=== PATIENT | female | born 1945 | race Caucasian/White ===

== ENCOUNTER 2016-09-26 10:23 | Inpatient (IN) | payer OTHER, MEDICARE ==
[~2016-09-26] VITALS: Ht 165.1 cm; Wt 54.9 kg
[2016-09-26] MEDS ORDERED: NORVASC10 MG PO (16:25)
[2016-09-26] MEDS ORDERED: TYLENOL EXTRA500 MG PO (16:27)
[2016-09-26] MEDS ORDERED: COLACE100 MG PO (16:28)
[2016-09-26] MEDS ORDERED: LIPITOR40 MG PO (16:28)
[2016-09-26] MEDS ORDERED: CYMBALTA60 MG PO (16:29)
[2016-09-26] MEDS ORDERED: ADVAIR 250/501 DISK IH (16:31)
[2016-09-26] MEDS ORDERED: FOLIC ACID1 MG PO (16:32)
[2016-09-26] MEDS ORDERED: LASIX40 MG PO (16:33)
[2016-09-26] MEDS ORDERED: NOVOLOG PE100 UNITS/ SC ×2 (16:36→16:41)
[2016-09-26] MEDS ORDERED: LANTUS 10100 UNITS/ SC (16:42)
[2016-09-26] MEDS ORDERED: VIMPAT100 MG PO (16:43)
[2016-09-26] MEDS ORDERED: SYNTHROID125 MCG PO (16:45)
[2016-09-26] MEDS ORDERED: LIDOCAINE700 MG TD (16:46)
[2016-09-26] MEDS ORDERED: [UNRECOGNIZED DRUG - OTHER] TP (16:48)
[2016-09-26] MEDS ORDERED: BACTROBAN CREAM15 GM TP (16:49)
[2016-09-26] MEDS ORDERED: ZYPREXA10 MG PO (16:51)
[2016-09-26] MEDS ORDERED: PROTONIX40 MG PO (16:52)
[2016-09-26] MEDS ORDERED: LYRICA25 MG PO (16:53)
[2016-09-26] MEDS ORDERED: SENNA8.8 MG/5 M PO (16:55)
[2016-09-26] MEDS ORDERED: OCEAN NASAL 0.645 ML BOTH NARES (16:56)
[2016-09-26] MEDS ORDERED: THIAMINE HCL100 MG PO (16:58)
[2016-09-26] MEDS ORDERED: SPIRIVA RESPIMAT4 GM IH (17:00)
[2016-09-26] MEDS ORDERED: SPIRIVA1 INHALATI IH (17:01)
[2016-09-26] MEDS ORDERED: COUMADIN6 MG PO (17:03)
[2016-09-26 17:05] LABS: POINT-OF-CARE METER ID UU13113720
[2016-09-26] MEDS ORDERED: COUMADIN7.5 MG PO (17:08)
[2016-09-26 17:43] VITALS: BP 153/65
[2016-09-26 17:48] LABS: INTER. NORMALIZED RATIO 1.6; PROTHROMBIN TIME 16.1 (9.2-11.2); PTT 55.7 (25-32)
[2016-09-26 20:42] LABS: MCH 27.8 PG (29.0-34.0); MCHC 31.4 G/DL (30.0-36.0); MCV 88.7 FL (83-99); PLATELET COUNT 256 K/uL (156-360); RBC DIS.WIDTH-CV 19.3 % (11.8-14.6); RED BLOOD COUNT 3.27 M/uL (3.80-5.20); WHITE BLOOD COUNT 9.6 K/uL (4.1-10.2)
[2016-09-26 20:50] LABS: CHLORIDE 101 mEq/L (99-109); POTASSIUM 4.9 mEq/L (3.7-5.4); SODIUM 136 mEq/L (136-147)
[2016-09-26 20:53] LABS: GLUCOSE 283 mg/dL (70-99)
[2016-09-26 20:54] LABS: ANION GAP 8 MEQ/L (2-14); TOTAL BILIRUBIN 0.3 mg/dL (0.0-1.0)
[2016-09-26 20:56] LABS: ALKALINE PHOSPHATASE 80 IU/L (3-129); GFR ESTIMATE (CALCULATED) 39 mL/min/
[2016-09-26 20:57] LABS: UREA NITROGEN (BUN) 22 mg/dL (9-23)
[2016-09-26 21:31] LABS: POINT-OF-CARE METER ID UU14174215
[2016-09-27 04:18] LABS: INTER. NORMALIZED RATIO 1.6; PROTHROMBIN TIME 16.4 (9.2-11.2)
[2016-09-27 05:01] VITALS: BP 121/56
[2016-09-27 08:00] LABS: POINT-OF-CARE METER ID UU13113720; POINT-OF-CARE USER ID AHSSSJB31
[2016-09-27 12:07] LABS: POINT-OF-CARE METER ID UU13113720; POINT-OF-CARE USER ID AHSSSJB31
[2016-09-27 15:53] VITALS: BP 130/61
[2016-09-27 16:45] LABS: POINT-OF-CARE METER ID UU14174215
[2016-09-27 21:22] LABS: POINT-OF-CARE METER ID UU13113720
[2016-09-28 04:52] VITALS: BP 133/62
[2016-09-28 05:30] LABS: INTER. NORMALIZED RATIO 1.6; PROTHROMBIN TIME 16.8 (9.2-11.2); PTT 70.6 (25-32)
[2016-09-28 06:02] LABS: HEMATOCRIT 26.6 % (36.0-46.0); MCHC 31.2 G/DL (30.0-36.0); MCV 89.9 FL (83-99); MEAN PLAT.VOLUME 9.4 uM^3 (9.5-12.4); PLATELET COUNT 251 K/uL (156-360); RBC DIS.WIDTH-CV 19.5 % (11.8-14.6); RBC DIS.WIDTH-SD 64.3 % (39-53); RED BLOOD COUNT 2.96 M/uL (3.80-5.20); WHITE BLOOD COUNT 9.7 K/uL (4.1-10.2)
[2016-09-28 07:10] LABS: POINT-OF-CARE METER ID UU14174215; POINT-OF-CARE USER ID AHSSSJB31
[2016-09-28 12:14] LABS: POINT-OF-CARE METER ID UU14174215; POINT-OF-CARE USER ID AHSSSJB31
[2016-09-28 15:57] VITALS: BP 143/73
[2016-09-28 16:30] LABS: POINT-OF-CARE METER ID UU13113720
[2016-09-28 21:07] LABS: POINT-OF-CARE METER ID UU13113720
[2016-09-29 01:27] LABS: INTER. NORMALIZED RATIO 1.5; PROTHROMBIN TIME 15.3 (9.2-11.2)
[2016-09-29 05:44] VITALS: BP 116/56
[2016-09-29 06:57] LABS: POINT-OF-CARE METER ID UU13113720; POINT-OF-CARE USER ID ENVGAF
[2016-09-29 11:37] LABS: POINT-OF-CARE METER ID UU13113720; POINT-OF-CARE USER ID ENVGAF
[2016-09-29 16:50] VITALS: BP 168/67
[2016-09-29 16:59] LABS: POINT-OF-CARE METER ID UU13113720
[2016-09-29 21:34] LABS: POINT-OF-CARE METER ID UU14174215
[2016-09-30 05:46] VITALS: BP 117/57
[2016-09-30 07:36] LABS: POINT-OF-CARE METER ID UU13113720; POINT-OF-CARE USER ID ENVGAF
[2016-09-30 08:01] LABS: HEMATOCRIT 26.5 % (36.0-46.0); MCHC 30.9 G/DL (30.0-36.0); MCV 90.4 FL (83-99); MEAN PLAT.VOLUME 9.4 uM^3 (9.5-12.4); PLATELET COUNT 294 K/uL (156-360); RBC DIS.WIDTH-CV 19.9 % (11.8-14.6); RBC DIS.WIDTH-SD 65.6 % (39-53); RED BLOOD COUNT 2.93 M/uL (3.80-5.20); WHITE BLOOD COUNT 9.7 K/uL (4.1-10.2)
[2016-09-30 08:07] LABS: INTER. NORMALIZED RATIO 1.5; PROTHROMBIN TIME 15.4 (9.2-11.2)
[2016-09-30 12:02] LABS: POINT-OF-CARE METER ID UU13113720; POINT-OF-CARE USER ID AHSSSJB31
[2016-09-30 15:35] VITALS: BP 130/60
[2016-09-30 17:12] LABS: POINT-OF-CARE METER ID UU13113720
[2016-09-30 21:21] LABS: POINT-OF-CARE METER ID UU13113720
[2016-10-01 04:45] VITALS: BP 155/70
[2016-10-01 07:30] LABS: POINT-OF-CARE METER ID UU13113720
[2016-10-01 09:25] LABS: INTER. NORMALIZED RATIO 1.8
[2016-10-01 11:57] LABS: POINT-OF-CARE METER ID UU14174215
[2016-10-01 15:05] VITALS: BP 145/66
[2016-10-01 16:18] LABS: POINT-OF-CARE METER ID UU14174215
[2016-10-01 20:39] LABS: POINT-OF-CARE METER ID UU14174215
[2016-10-02 06:10] VITALS: BP 137/65
[2016-10-02 06:22] LABS: INTER. NORMALIZED RATIO 2.3; PROTHROMBIN TIME 23.6 (9.2-11.2); PTT 80.1 (25-32)
[2016-10-02 07:24] LABS: POINT-OF-CARE METER ID UU14174215
[2016-10-02 11:51] LABS: POINT-OF-CARE METER ID UU14174215
[2016-10-02 15:32] VITALS: BP 131/64
[2016-10-02 16:24] LABS: POINT-OF-CARE METER ID UU14174215
[2016-10-02 21:14] LABS: POINT-OF-CARE METER ID UU14174215
[2016-10-02 21:35] VITALS: BP 160/81
[2016-10-02 22:16] LABS: BASE EXCESS 3.2 mEq/L (-3 to +3); BICARBONATE 28.5 mEq/L (22-26); COMMENTS - BLOOD GASES C+; DEVICE NCH; METHEMOGLOBIN 1.8 % (0-1.5); O2 FLOW 3 L/MIN; PCO2 46 mm Hg (35-45); PO2 56 mm Hg (80-100); SITE LR
[2016-10-02 22:32] LABS: HEMATOCRIT 27.7 % (36.0-46.0); MCH 27.9 PG (29.0-34.0); MCHC 31.4 G/DL (30.0-36.0); MCV 88.8 FL (83-99); NRBC (%) 0.2 /100 WBC (0-0); PLATELET COUNT 303 K/uL (156-360); RBC DIS.WIDTH-CV 19.8 % (11.8-14.6); RBC DIS.WIDTH-SD 63.9 % (39-53); RED BLOOD COUNT 3.12 M/uL (3.80-5.20); WHITE BLOOD COUNT 12.5 K/uL (4.1-10.2)
[2016-10-02 22:42] LABS: CHLORIDE 102 mEq/L (99-109); SODIUM 137 mEq/L (136-147)
[2016-10-02 22:44] LABS: GLUCOSE 353 mg/dL (70-99)
[2016-10-02 22:45] LABS: ANION GAP 11 MEQ/L (2-14)
[2016-10-02 22:46] LABS: TOTAL BILIRUBIN 0.3 mg/dL (0.0-1.0)
[2016-10-02 22:47] LABS: ALKALINE PHOSPHATASE 81 IU/L (3-129)
[2016-10-02 22:48] LABS: GFR ESTIMATE (CALCULATED) 43 mL/min/
[2016-10-02 22:49] LABS: UREA NITROGEN (BUN) 21 mg/dL (9-23)
== END 2016-10-02 22:42 | DRG 56 ==
LOC: 3WEST 10:23
PROVIDERS: Internal Medicine; Physical Medicine & Rehabilitation Pain Medicine; Psychiatry & Neurology Neurology
PROC: 5A09357 Assistance with Respiratory Ventilation, Less than 24 Consecutive Hours, Continuous Positive Airway Pressure (ICD-10-PCS; principal; 2016-09-26)
DX: I69.019 Unspecified symptoms and signs involving cognitive functions following nontraumatic subarachnoid hemorrhage (principal); R26.2 Difficulty in walking, not elsewhere classified; I13.0 Hypertensive heart and chronic kidney disease with heart failure and stage 1 through stage 4 chronic kidney disease, or unspecified chronic kidney disease; J96.01 Acute respiratory failure with hypoxia; A41.9 Sepsis, unspecified organism; J18.9 Pneumonia, unspecified organism; Y95 Nosocomial condition; G93.40 Encephalopathy, unspecified; N18.3 Chronic kidney disease, stage 3 (moderate); I50.9 Heart failure, unspecified; E11.22 Type 2 diabetes mellitus with diabetic chronic kidney disease; I27.2 Other secondary pulmonary hypertension; D32.0 Benign neoplasm of cerebral meninges; D86.9 Sarcoidosis, unspecified; D64.9 Anemia, unspecified; G89.29 Other chronic pain; M54.9 Dorsalgia, unspecified; R53.1 Weakness; I48.2 Chronic atrial fibrillation; J43.9 Emphysema, unspecified; G47.30 Sleep apnea, unspecified; I48.0 Paroxysmal atrial fibrillation; E03.9 Hypothyroidism, unspecified; Z95.2 Presence of prosthetic heart valve; Z79.01 Long term (current) use of anticoagulants; Z79.4 Long term (current) use of insulin; Z95.0 Presence of cardiac pacemaker; Z86.718 Personal history of other venous thrombosis and embolism; Z87.891 Personal history of nicotine dependence
CPT/HCPCS: 36600; 70450; 71020; 71250; 80053; 82803; 82948; 83605; 85027; 85610; 85730; 87040; 92523 GN; 92610 GN; 93005; 94640; 94640 76; 94660; 94799; 97110 GO; 97530 GP; 97532 GN; 99202

== ENCOUNTER 2016-10-02 22:24 | Inpatient (IN) | payer OTHER, MEDICARE ==
[~2016-10-02] VITALS: Ht 157.5 cm; Wt 57.5 kg
[~2016-10-02 22:24] MED LIST: ADVAIR 250/501 DISK IH; BACTROBAN CREAM15 GM TP; COLACE100 MG PO; COUMADIN6 MG PO; COUMADIN7.5 MG PO; CYMBALTA60 MG PO; FOLIC ACID1 MG PO; LANTUS 10100 UNITS/ SC; LASIX40 MG PO; LIDOCAINE700 MG TD; LIPITOR40 MG PO; LYRICA25 MG PO; NORVASC10 MG PO; NOVOLOG PE100 UNITS/ SC; OCEAN NASAL 0.645 ML BOTH NARES; PROTONIX40 MG PO; SENNA8.8 MG/5 M PO; SPIRIVA RESPIMAT4 GM IH; SPIRIVA1 INHALATI IH; SYNTHROID125 MCG PO; THIAMINE HCL100 MG PO; TYLENOL EXTRA500 MG PO; VIMPAT100 MG PO; ZYPREXA10 MG PO; [UNRECOGNIZED DRUG - OTHER] TP
[2016-10-02 22:45] VITALS: BP 151/67
[2016-10-02 23:00] VITALS: BP 158/59
[2016-10-03] VITALS (9 sets, daily range): BP systolic 107–168; BP diastolic 37–146
[2016-10-03 01:37] LABS: METH RESISTANT S AUREUS PCR NEGATIVE (NEGATIVE)
[2016-10-03 01:41] LABS: PROBE CHECK PASS; SPECIMEN PROCESSING CONTROL PASS
[2016-10-03 04:59] LABS: HEMATOCRIT 28.4 % (36.0-46.0); MCH 27.8 PG (29.0-34.0); MCV 89.6 FL (83-99); NRBC (%) 0.3 /100 WBC (0-0); PLATELET COUNT 269 K/uL (156-360); RBC DIS.WIDTH-CV 19.9 % (11.8-14.6); RBC DIS.WIDTH-SD 65.1 % (39-53); RED BLOOD COUNT 3.17 M/uL (3.80-5.20); WHITE BLOOD COUNT 19.8 K/uL (4.1-10.2)
[2016-10-03 05:13] LABS: CHLORIDE 105 mEq/L (99-109); POTASSIUM 5.3 mEq/L (3.7-5.4); SODIUM 137 mEq/L (136-147)
[2016-10-03 05:15] LABS: GLUCOSE 234 mg/dL (70-99)
[2016-10-03 05:16] LABS: ANION GAP 9 MEQ/L (2-14)
[2016-10-03 05:19] LABS: ALKALINE PHOSPHATASE 75 IU/L (3-129); GFR ESTIMATE (CALCULATED) 47 mL/min/
[2016-10-03 05:20] LABS: UREA NITROGEN (BUN) 21 mg/dL (9-23)
[2016-10-03 05:29] LABS: TOTAL BILIRUBIN 0.4 mg/dL (0.0-1.0)
[2016-10-03 05:51] LABS: ABS NEUTROPHIL COUNT 18.9; ANISOCYTOSIS 2+; BAND NEUTROPHILS 6.4 % (0-8.0); EOSINOPHIL ABS CT 0; HYPOCHROMASIA 1+; INSTRUMENT ABS NEUTROPHIL CT 17.6 K/uL; LYMPHOCYTES 1.8 % (15.0-45.0); MACROCYTES 1+; METAMYELOCYTES 2.7 %; PLAT.SUFFICIENCY ADEQUATE; POIKILOCYTOSIS 1+; POLYCHROMASIA 1+; SEG.NEUTROPHILS 89.1 % (46.0-76.0); STOMATOCYTES 1+
[2016-10-03 08:12] LABS: INFLUENZA A VIRAL ANTIGEN NEGATIVE; INFLUENZA B VIRAL ANTIGEN NEGATIVE
[2016-10-03 10:20] LABS: INTER. NORMALIZED RATIO 2.9; PROTHROMBIN TIME 30.5 (9.2-11.2)
[2016-10-03 12:17] LABS: POINT-OF-CARE METER ID UU14162636
[2016-10-03 17:39] LABS: POINT-OF-CARE METER ID UU13113731
[2016-10-03 20:46] LABS: POINT-OF-CARE USER ID ENVMNS
[2016-10-04 00:15] VITALS: BP 128/62
[2016-10-04 04:28] VITALS: BP 137/72
[2016-10-04 07:17] LABS: INTERNAL CONTROL VALID? YES
[2016-10-04 07:25] VITALS: BP 128/59
[2016-10-04 07:43] LABS: HEMATOCRIT 25.1 % (36.0-46.0); MCH 28.6 PG (29.0-34.0); MCHC 31.1 G/DL (30.0-36.0); MCV 91.9 FL (83-99); MEAN PLAT.VOLUME 9.2 uM^3 (9.5-12.4); PLATELET COUNT 249 K/uL (156-360); RBC DIS.WIDTH-CV 20.1 % (11.8-14.6); RBC DIS.WIDTH-SD 68.1 % (39-53); RED BLOOD COUNT 2.73 M/uL (3.80-5.20)
[2016-10-04 07:54] LABS: WHITE BLOOD COUNT 11.8 K/uL (4.1-10.2)
[2016-10-04 07:55] LABS: INTER. NORMALIZED RATIO 2.8; PROTHROMBIN TIME 29.1 (9.2-11.2)
[2016-10-04 08:20] LABS: ANION GAP 8 MEQ/L (2-14); CHLORIDE 103 MEQ/L (99-109); GFR ESTIMATE (CALCULATED) 47 mL/min/; GLUCOSE 180 mg/dL (70-99); POTASSIUM 4.8 MEQ/L (3.7-5.4); SAMPLE HEMOLYSIS CHECK 0; SAMPLE ICTERIC CHECK 0; SAMPLE LIPEMIA CHECK 0; SODIUM 136 MEQ/L (136-147); UREA NITROGEN (BUN) 26 mg/dL (9-23)
[2016-10-04 11:11] LABS: POINT-OF-CARE METER ID UU13113781
[2016-10-04 11:22] VITALS: BP 143/62
[2016-10-04 16:33] VITALS: BP 130/62
[2016-10-04 16:47] LABS: POINT-OF-CARE METER ID UU13113781
[2016-10-04 19:00] VITALS: BP 131/58
[2016-10-05] VITALS (7 sets, daily range): BP systolic 116–153; BP diastolic 61–92
[2016-10-05 03:20] LABS: POINT-OF-CARE METER ID UU14174216
[2016-10-05 05:29] LABS: INTER. NORMALIZED RATIO 2.4; PROTHROMBIN TIME 25.4 (9.2-11.2)
[2016-10-05 05:30] LABS: EOSINOPHIL (%) 4.5 % (0-5); EOSINOPHIL COUNT 0.3 K/uL (0-0.3); HEMATOCRIT 24.8 % (36.0-46.0); IMMATURE GRANULOCYTE COUNT 0.1 K/uL; INSTRUMENT ABS NEUTROPHIL CT 4.5 K/uL; LYMPHOCYTE COUNT 0.9 K/uL (1.0-2.8); MCH 28.2 PG (29.0-34.0); MCV 90.8 FL (83-99); MEAN PLAT.VOLUME 9.2 uM^3 (9.5-12.4); MONOCYTE (%) 7.8 % (3-12); MONOCYTE COUNT 0.5 K/uL (0-0.8); NEUTROPHIL (%) 71.6 % (45-76); NEUTROPHIL COUNT 4.5 K/uL (1.8-6.4); PLATELET COUNT 237 K/uL (156-360); RBC DIS.WIDTH-CV 19.5 % (11.8-14.6); RBC DIS.WIDTH-SD 65.1 % (39-53); RED BLOOD COUNT 2.73 M/uL (3.80-5.20)
[2016-10-05 05:31] LABS: WHITE BLOOD COUNT 6.3 K/uL (4.1-10.2)
[2016-10-05 05:46] LABS: ANION GAP 8 MEQ/L (2-14); CHLORIDE 105 MEQ/L (99-109); GFR ESTIMATE (CALCULATED) 52 mL/min/; GLUCOSE 154 mg/dL (70-99); MAGNESIUM 1.7 mg/dl (1.3-2.7); POTASSIUM 4.5 MEQ/L (3.7-5.4); SAMPLE HEMOLYSIS CHECK 0; SAMPLE ICTERIC CHECK 0; SAMPLE LIPEMIA CHECK 0; SODIUM 139 MEQ/L (136-147); UREA NITROGEN (BUN) 25 mg/dL (9-23)
[2016-10-05 07:43] LABS: POINT-OF-CARE USER ID NUTSLF44
[2016-10-05 11:31] LABS: POINT-OF-CARE USER ID NUTSLF44
[2016-10-05 16:05] LABS: HEMATOCRIT 24.5 % (36.0-46.0); MCH 27.9 PG (29.0-34.0); MCV 90.1 FL (83-99); MEAN PLAT.VOLUME 8.9 uM^3 (9.5-12.4); PLATELET COUNT 237 K/uL (156-360); RBC DIS.WIDTH-CV 19.4 % (11.8-14.6); RBC DIS.WIDTH-SD 64.2 % (39-53); RED BLOOD COUNT 2.72 M/uL (3.80-5.20); WHITE BLOOD COUNT 6.9 K/uL (4.1-10.2)
[2016-10-05 17:19] LABS: POINT-OF-CARE USER ID NUTSLF44
[2016-10-06 04:57] VITALS: BP 154/70
[2016-10-06 05:48] LABS: MCH 28.9 PG (29.0-34.0); MCV 90.3 FL (83-99); MEAN PLAT.VOLUME 9.5 uM^3 (9.5-12.4); PLATELET COUNT 255 K/uL (156-360); RBC DIS.WIDTH-CV 19.3 % (11.8-14.6); RBC DIS.WIDTH-SD 65.1 % (39-53); RED BLOOD COUNT 2.77 M/uL (3.80-5.20); WHITE BLOOD COUNT 6.7 K/uL (4.1-10.2)
[2016-10-06 07:11] VITALS: BP 146/68
[2016-10-06 07:25] LABS: INTER. NORMALIZED RATIO 2.5; PROTHROMBIN TIME 25.9 (9.2-11.2)
[2016-10-06 11:21] VITALS: BP 148/65
[2016-10-06 11:32] LABS: POINT-OF-CARE METER ID UU13113781
[2016-10-06] MEDS ORDERED: CEFDINIR300 MG PO (12:32)
[2016-10-06] MEDS ORDERED: ACETAMINOPHEN-1 EAC1 PO (12:32)
[2016-10-06] MEDS ORDERED: MUCINEX600 MG PO (12:37)
[2016-10-06] MEDS ORDERED: LANTUS 10100 UNITS/ SC (14:23)
[2016-10-06] MEDS ORDERED: LEVEMIR100 UNIT/2 SC (14:25)
== END 2016-10-06 15:22 | disposition home health service (06) | DRG 189 ==
LOC: 4WEST 22:24 → 4EAST 22:51 → 4WEST 22:51 → 4EAST 10-03 17:40
PROVIDERS: Hospitalist; Internal Medicine
DX: J96.01 Acute respiratory failure with hypoxia (principal); J44.0 Chronic obstructive pulmonary disease with (acute) lower respiratory infection; J18.9 Pneumonia, unspecified organism; J44.1 Chronic obstructive pulmonary disease with (acute) exacerbation; R26.2 Difficulty in walking, not elsewhere classified; D86.9 Sarcoidosis, unspecified; Y95 Nosocomial condition; I13.0 Hypertensive heart and chronic kidney disease with heart failure and stage 1 through stage 4 chronic kidney disease, or unspecified chronic kidney disease; I50.9 Heart failure, unspecified; N18.3 Chronic kidney disease, stage 3 (moderate); E11.22 Type 2 diabetes mellitus with diabetic chronic kidney disease; I48.0 Paroxysmal atrial fibrillation; G47.30 Sleep apnea, unspecified; E03.9 Hypothyroidism, unspecified; D32.0 Benign neoplasm of cerebral meninges; D64.9 Anemia, unspecified; F32.9 Major depressive disorder, single episode, unspecified; Z86.718 Personal history of other venous thrombosis and embolism; Z95.0 Presence of cardiac pacemaker; Z95.2 Presence of prosthetic heart valve; Z79.01 Long term (current) use of anticoagulants
CPT/HCPCS: 71010; 71020; 80048; 80053; 82948; 83605; 83735; 85025; 85027; 85610; 87070; 87205; 87449; 87502; 87641; 94010; 94640; 94640 76; 94667; 94668; 94760; 94799; 97530 GO; 99202; J0692; J3370; J7050

== ENCOUNTER 2016-10-31 11:57 | Inpatient (IN) | payer OTHER, MEDICARE ==
[~2016-10-31] VITALS: Ht 167.6 cm; Wt 65.6 kg
[~2016-10-31 11:57] MED LIST changes: +ACETAMINOPHEN-1 EAC1 PO; +CEFDINIR300 MG PO; +LEVEMIR100 UNIT/2 SC; +MUCINEX600 MG PO
[2016-10-31 12:48] LABS: BASE EXCESS 11.6 mEq/L (-3 to +3); COMMENTS - BLOOD GASES A+C+; METHEMOGLOBIN 1.1 % (0-1.5); O2 FLOW 10 L/MIN; PCO2 60 mm Hg (35-45); PO2 171 mm Hg (80-100); SITE RR; pH 7.41 (7.35-7.45)
[2016-10-31 12:49] LABS: DEVICE NCHF; TOTAL RESP RATE 21 resp/min
[2016-10-31 13:54] LABS: EOSINOPHIL (%) 1.3 % (0-5); EOSINOPHIL COUNT 0.1 K/uL (0-0.3); HEMATOCRIT 27.2 % (36.0-46.0); IMMATURE GRANULOCYTE (%) 0.5 % (0.0-0.7); IMMATURE GRANULOCYTE COUNT 0.1 K/uL; MCH 26.5 PG (29.0-34.0); MCHC 31.3 G/DL (30.0-36.0); MCV 84.7 FL (83-99); MEAN PLAT.VOLUME 8.5 uM^3 (9.5-12.4); MONOCYTE (%) 10.3 % (3-12); MONOCYTE COUNT 1.1 K/uL (0-0.8); NEUTROPHIL (%) 77.8 % (45-76); NRBC (%) 0.2 /100 WBC (0-0); PLATELET COUNT 231 K/uL (156-360); RBC DIS.WIDTH-CV 16.8 % (11.8-14.6); RBC DIS.WIDTH-SD 52.6 % (39-53); RED BLOOD COUNT 3.21 M/uL (3.80-5.20); WHITE BLOOD COUNT 10.3 K/uL (4.1-10.2)
[2016-10-31 14:01] LABS: CHLORIDE 92 mEq/L (99-109); POTASSIUM 3.3 mEq/L (3.7-5.4); SODIUM 138 mEq/L (136-147)
[2016-10-31 14:02] LABS: GLUCOSE 90 mg/dL (70-99)
[2016-10-31 14:04] LABS: ANION GAP 13 MEQ/L (2-14)
[2016-10-31 14:05] LABS: INTER. NORMALIZED RATIO 2.4; PROTHROMBIN TIME 24.9 (9.2-11.2); PTT 50.4 (25-32)
[2016-10-31 14:06] LABS: GFR ESTIMATE (CALCULATED) 34 mL/min/
[2016-10-31 14:07] LABS: UREA NITROGEN (BUN) 50 mg/dL (9-23)
[2016-10-31 14:13] LABS: TROP-I INTERPRETATION NEGATIVE; TROPONIN-I 0.07 ng/mL (0.0-0.30)
[2016-10-31] MEDS ORDERED: DULERA 200 MCG/13 GM IH (15:12)
[2016-10-31] MEDS ORDERED: CYMBALTA30 MG PO (15:13)
[2016-10-31] MEDS ORDERED: LANTUS 3 M100 UNITS1 SC (15:14)
[2016-10-31] MEDS ORDERED: SPIRIVA1 INHALATI IH (15:16)
[2016-10-31] MEDS ORDERED: PROBIOTIC1 EAC1 PO (15:16)
[2016-10-31] MEDS ORDERED: NOVOLOG PE100 UNITS/ SC (15:16)
[2016-10-31] MEDS ORDERED: COUMADIN5 MG PO (15:18)
[2016-10-31] MEDS ORDERED: RANITIDINE HCL300 M1 PO (15:19)
[2016-10-31] MEDS ORDERED: WARFARIN SODIUM1 MG PO (15:19)
[2016-10-31] MEDS ORDERED: METOLAZONE2.5 MG PO (15:20)
[2016-10-31] MEDS ORDERED: RENA-VITE RX T1 EACH PO (15:20)
[2016-10-31 16:05] VITALS: BP 138/63
[2016-10-31 19:24] VITALS: BP 128/62
[2016-10-31 23:59] VITALS: BP 121/58
[2016-11-01 03:43] VITALS: BP 124/58
[2016-11-01 05:29] LABS: HEMATOCRIT 25.1 % (36.0-46.0); MCH 26.4 PG (29.0-34.0); MCHC 31.1 G/DL (30.0-36.0); MCV 85.1 FL (83-99); PLATELET COUNT 200 K/uL (156-360); RBC DIS.WIDTH-CV 16.7 % (11.8-14.6); RBC DIS.WIDTH-SD 52.6 % (39-53); RED BLOOD COUNT 2.95 M/uL (3.80-5.20); WHITE BLOOD COUNT 9.1 K/uL (4.1-10.2)
[2016-11-01 05:41] LABS: INTER. NORMALIZED RATIO 2.1; PROTHROMBIN TIME 22.4 (9.2-11.2)
[2016-11-01 05:52] LABS: ANION GAP 9 MEQ/L (2-14); CHLORIDE 94 MEQ/L (99-109); GFR ESTIMATE (CALCULATED) 31 mL/min/; POTASSIUM 3.8 MEQ/L (3.7-5.4); SAMPLE HEMOLYSIS CHECK 0; SAMPLE ICTERIC CHECK 0; SAMPLE LIPEMIA CHECK 0; SODIUM 136 MEQ/L (136-147); UREA NITROGEN (BUN) 55 mg/dL (9-23)
[2016-11-01 06:00] LABS: POINT-OF-CARE METER ID UU14174216
[2016-11-01 06:00] LABS: GLUCOSE 335 mg/dL (70-99)
[2016-11-01 07:16] VITALS: BP 127/61
[2016-11-01 07:51] LABS: EOSINOPHIL (%) 0 % (0-5); IMMATURE GRANULOCYTE (%) 0.8 % (0.0-0.7); IMMATURE GRANULOCYTE COUNT 0.1 K/uL; INSTRUMENT ABS NEUTROPHIL CT 8.5 K/uL; LYMPHOCYTE COUNT 0.4 K/uL (1.0-2.8); MONOCYTE (%) 1.9 % (3-12); MONOCYTE COUNT 0.2 K/uL (0-0.8); NEUTROPHIL (%) 93.5 % (45-76); NEUTROPHIL COUNT 8.5 K/uL (1.8-6.4)
[2016-11-01 08:15] LABS: INTERNAL CONTROL VALID? YES
[2016-11-01 08:19] LABS: POINT-OF-CARE METER ID UU13113781; POINT-OF-CARE USER ID ENVKC36
[2016-11-01 08:31] LABS: POINT-OF-CARE METER ID UU14174216
[2016-11-01 11:18] VITALS: BP 122/58
[2016-11-01 11:44] LABS: POINT-OF-CARE USER ID ENVKC36
[2016-11-01 16:09] VITALS: BP 126/61
[2016-11-01 16:52] LABS: Estimated Average Glucose 148 mg/dL (70-123); HEMOGLOBIN A1c (GLYCOHEMOGLOB) 6.8 % HGB (Below 5.7)
[2016-11-01 19:00] VITALS: BP 134/73
[2016-11-01 21:26] LABS: POINT-OF-CARE METER ID UU13113781
[2016-11-01 23:30] VITALS: BP 134/98
[2016-11-02 03:00] VITALS: BP 142/67
[2016-11-02 06:25] LABS: INTER. NORMALIZED RATIO 3.3
[2016-11-02 06:46] LABS: PROTHROMBIN TIME 34.7 (9.2-11.2)
[2016-11-02 08:05] LABS: POINT-OF-CARE METER ID UU14174216; POINT-OF-CARE USER ID NUTSLF44
[2016-11-02 08:30] VITALS: BP 129/71
[2016-11-02 11:52] VITALS: BP 142/64
[2016-11-02 12:06] LABS: POINT-OF-CARE USER ID NUTSLF44
[2016-11-02 12:08] VITALS: BP 155/69
[2016-11-02 15:22] VITALS: BP 151/66
[2016-11-02 15:22] LABS: HEMATOCRIT 26.2 % (36.0-46.0); MCH 26.2 PG (29.0-34.0); MCHC 30.5 G/DL (30.0-36.0); MCV 85.9 FL (83-99); MEAN PLAT.VOLUME 9.2 uM^3 (9.5-12.4); NRBC (%) 0.3 /100 WBC (0-0); PLATELET COUNT 272 K/uL (156-360); RBC DIS.WIDTH-CV 17.2 % (11.8-14.6); RBC DIS.WIDTH-SD 54.3 % (39-53); RED BLOOD COUNT 3.05 M/uL (3.80-5.20); WHITE BLOOD COUNT 14.1 K/uL (4.1-10.2)
[2016-11-02 15:34] LABS: ANION GAP 11 MEQ/L (2-14); CHLORIDE 97 MEQ/L (99-109); GFR ESTIMATE (CALCULATED) 29 mL/min/; GLUCOSE 364 mg/dL (70-99); SAMPLE HEMOLYSIS CHECK 0; SAMPLE ICTERIC CHECK 0; SAMPLE LIPEMIA CHECK 0; SODIUM 135 MEQ/L (136-147); UREA NITROGEN (BUN) 70 mg/dL (9-23)
[2016-11-02 19:57] VITALS: BP 147/66
[2016-11-03] VITALS: BP 135/63
[2016-11-03 03:57] VITALS: BP 127/68
[2016-11-03 06:17] LABS: INTER. NORMALIZED RATIO 4.4
[2016-11-03 07:19] VITALS: BP 140/68
[2016-11-03 09:19] LABS: POINT-OF-CARE METER ID UU13113781; POINT-OF-CARE USER ID ENVKC36
[2016-11-03 11:05] LABS: POINT-OF-CARE METER ID UU13113717
[2016-11-03 11:11] VITALS: BP 157/70
[2016-11-03 15:19] VITALS: BP 153/70
[2016-11-03 16:17] LABS: POINT-OF-CARE METER ID UU13113717
[2016-11-03 20:18] VITALS: BP 149/67
[2016-11-04] VITALS: BP 157/69
[2016-11-04 03:44] VITALS: BP 153/71
[2016-11-04 06:10] LABS: HEMATOCRIT 24.9 % (36.0-46.0); MCH 26.6 PG (29.0-34.0); MCHC 30.9 G/DL (30.0-36.0); MCV 85.9 FL (83-99); MEAN PLAT.VOLUME 9.2 uM^3 (9.5-12.4); NRBC (%) 0.6 /100 WBC (0-0); PLATELET COUNT 262 K/uL (156-360); RBC DIS.WIDTH-CV 17.4 % (11.8-14.6); RBC DIS.WIDTH-SD 54.4 % (39-53); WHITE BLOOD COUNT 10.3 K/uL (4.1-10.2)
[2016-11-04 06:44] LABS: PROTHROMBIN TIME 51.7 (9.2-11.2)
[2016-11-04 06:52] LABS: ANION GAP 8 MEQ/L (2-14); CHLORIDE 102 MEQ/L (99-109); GFR ESTIMATE (CALCULATED) 36 mL/min/; POTASSIUM 4.1 MEQ/L (3.7-5.4); SAMPLE HEMOLYSIS CHECK 0; SAMPLE ICTERIC CHECK 0; SAMPLE LIPEMIA CHECK 0; UREA NITROGEN (BUN) 63 mg/dL (9-23)
[2016-11-04 06:56] LABS: INTER. NORMALIZED RATIO 4.8
[2016-11-04 06:57] LABS: GLUCOSE 161 mg/dL (70-99); SODIUM 143 MEQ/L (136-147)
[2016-11-04 07:19] VITALS: BP 141/67
[2016-11-04] MEDS ORDERED: AZITHROMYCIN250 MG1 PO (11:38)
[2016-11-04] MEDS ORDERED: CEFEPIME HCL2 GM IM (11:42)
[2016-11-04] MEDS ORDERED: LANTUS 3 M100 UNITS1 SC (12:17)
[2016-11-04] MEDS ORDERED: PREDNISONE20 MG PO (12:17)
== END 2016-11-04 13:45 | disposition home health service (06) | DRG 190 ==
LOC: EME 11:57 → 5SOUTH 14:45 → 4EAST 14:45 → 5SOUTH 14:45 → EDOF 14:45 → 4EAST 15:49 → 5SOUTH 11-02 11:59
PROVIDERS: Internal Medicine; Personal Emergency Response Attendant; Physician Assistant
DX: J44.0 Chronic obstructive pulmonary disease with (acute) lower respiratory infection (principal); J96.01 Acute respiratory failure with hypoxia; N17.9 Acute kidney failure, unspecified; J18.9 Pneumonia, unspecified organism; J90 Pleural effusion, not elsewhere classified; E11.22 Type 2 diabetes mellitus with diabetic chronic kidney disease; E11.65 Type 2 diabetes mellitus with hyperglycemia; I49.5 Sick sinus syndrome; N18.3 Chronic kidney disease, stage 3 (moderate); Z99.81 Dependence on supplemental oxygen; Y95 Nosocomial condition; D64.9 Anemia, unspecified; D86.9 Sarcoidosis, unspecified; E03.9 Hypothyroidism, unspecified; I12.9 Hypertensive chronic kidney disease with stage 1 through stage 4 chronic kidney disease, or unspecified chronic kidney disease; E78.5 Hyperlipidemia, unspecified; E87.6 Hypokalemia; G47.33 Obstructive sleep apnea (adult) (pediatric); J44.1 Chronic obstructive pulmonary disease with (acute) exacerbation; J98.11 Atelectasis; R79.1 Abnormal coagulation profile; Z79.4 Long term (current) use of insulin; Z86.718 Personal history of other venous thrombosis and embolism; Z87.01 Personal history of pneumonia (recurrent); Z87.891 Personal history of nicotine dependence; Z95.0 Presence of cardiac pacemaker; Z95.1 Presence of aortocoronary bypass graft; Z95.2 Presence of prosthetic heart valve; R59.0 Localized enlarged lymph nodes; I48.2 Chronic atrial fibrillation
CPT/HCPCS: 36600; 71010; 71250; 80048; 82803; 82948; 83036; 83880; 84484; 85025; 85027; 85610; 85730; 87040; 87070; 87205; 87449; 93005; 93306; 94010; 94640; 94640 76; 94660; 94760; 94799; 99202; 99281; 99285; J0692; J1815; J2920; J2930; J3370; J7030; J7050; J7512

== ENCOUNTER 2017-01-24 16:27 | Inpatient (IN) | payer OTHER, MEDICARE ==
[~2017-01-24] VITALS: Ht 165.1 cm; Wt 65.3 kg
[~2017-01-24 16:27] MED LIST changes: +AZITHROMYCIN250 MG1 PO; +CEFEPIME HCL2 GM IM; +COUMADIN5 MG PO; +CYMBALTA30 MG PO; +DULERA 200 MCG/13 GM IH; +LANTUS 3 M100 UNITS1 SC; +METOLAZONE2.5 MG PO; +PREDNISONE20 MG PO; +PROBIOTIC1 EAC1 PO; +RANITIDINE HCL300 M1 PO; +RENA-VITE RX T1 EACH PO; +WARFARIN SODIUM1 MG PO
[2017-01-24 17:29] LABS: HEMATOCRIT 32.6 % (36.0-46.0); MCH 25.4 PG (29.0-34.0); MCHC 32.5 G/DL (30.0-36.0); MCV 78.2 FL (83-99); MEAN PLAT.VOLUME 8.1 uM^3 (9.5-12.4); PLATELET COUNT 244 K/uL (156-360); RBC DIS.WIDTH-CV 17.5 % (11.8-14.6); RED BLOOD COUNT 4.17 M/uL (3.80-5.20); WHITE BLOOD COUNT 6.3 K/uL (4.1-10.2)
[2017-01-24 17:35] LABS: INTER. NORMALIZED RATIO 2.7; PROTHROMBIN TIME 30.6 SEC (10.2-12.9)
[2017-01-24 17:37] LABS: CHLORIDE 95 mEq/L (99-109); SODIUM 133 mEq/L (136-147)
[2017-01-24 17:39] LABS: GLUCOSE 216 mg/dL (70-99)
[2017-01-24 17:41] LABS: ANION GAP 13 MEQ/L (2-14); TOTAL BILIRUBIN 0.4 mg/dL (0.0-1.0)
[2017-01-24 17:43] LABS: ALKALINE PHOSPHATASE 110 IU/L (3-129); GFR ESTIMATE (CALCULATED) 26 mL/min/
[2017-01-24 17:44] LABS: UREA NITROGEN (BUN) 45 mg/dL (9-23)
[2017-01-24 17:47] LABS: POTASSIUM 6.6 mEq/L (3.7-5.4)
[2017-01-24 17:49] LABS: TROP-I INTERPRETATION NEGATIVE; TROPONIN-I 0.02 ng/mL (0.0-0.30)
[2017-01-24 18:25] LABS: CHLORIDE 99 mEq/L (99-109); SODIUM 135 mEq/L (136-147)
[2017-01-24 18:25] LABS: CREATININE 1.9 mg/dL (0.6-1.3)
[2017-01-24 18:26] LABS: POTASSIUM 6.2 mEq/L (3.7-5.4)
[2017-01-24 18:27] LABS: GLUCOSE 162 mg/dL (70-99)
[2017-01-24 18:28] LABS: ANION GAP 12 MEQ/L (2-14)
[2017-01-24 18:31] LABS: GFR ESTIMATE (CALCULATED) 29 mL/min/
[2017-01-24 18:32] LABS: UREA NITROGEN (BUN) 43 mg/dL (9-23)
[2017-01-24 18:58] LABS: POINT-OF-CARE METER ID UU14100415
[2017-01-24] MEDS ORDERED: AZITHROMYCIN500 M1 PO (20:53)
[2017-01-24] MEDS ORDERED: DULOXETINE HCL60 MG PO (20:55)
[2017-01-24] MEDS ORDERED: FUROSEMIDE40 MG PO (20:58)
[2017-01-24] MEDS ORDERED: COUMADIN7.5 MG PO (21:17)
[2017-01-24] MEDS ORDERED: OMEPRAZOLE40 M1 PO (21:19)
[2017-01-24] MEDS ORDERED: BREO ELLIPTA I1 EACH IH (21:20)
[2017-01-24] MEDS ORDERED: SPIRONOLACTONE25 MG PO (21:22)
[2017-01-24] MEDS ORDERED: VP-VITE RX TAB1 EACH PO (21:26)
[2017-01-24 22:36] VITALS: BP 140/72
[2017-01-25 02:45] LABS: TROP-I INTERPRETATION NEGATIVE; TROPONIN-I 0.02 ng/mL (0.0-0.30)
[2017-01-25 04:01] VITALS: BP 174/72
[2017-01-25 07:05] LABS: ANION GAP 10 MEQ/L (2-14); CHLORIDE 101 MEQ/L (99-109); SAMPLE HEMOLYSIS CHECK 0; SAMPLE ICTERIC CHECK 0; SAMPLE LIPEMIA CHECK 0
[2017-01-25 07:07] LABS: POTASSIUM 4.5 MEQ/L (3.7-5.4); SODIUM 142 MEQ/L (136-147)
[2017-01-25 07:10] LABS: GFR ESTIMATE (CALCULATED) 34 mL/min/; GLUCOSE 126 mg/dL (70-99); UREA NITROGEN (BUN) 39 mg/dL (9-23)
[2017-01-25 07:15] LABS: INTER. NORMALIZED RATIO 2.6; PROTHROMBIN TIME 30.1 SEC (10.2-12.9)
[2017-01-25 07:29] LABS: MAGNESIUM 1.7 mg/dl (1.3-2.7)
[2017-01-25 07:40] VITALS: BP 146/88
[2017-01-25 11:28] VITALS: BP 134/65
[2017-01-25] MEDS ORDERED: METOLAZONE2.5 MG PO (11:50)
[2017-01-25] MEDS ORDERED: LASIX40 MG PO (11:50)
[2017-01-25] MEDS ORDERED: ALDACTONE25 MG PO (12:13)
== END 2017-01-25 14:10 | disposition home health service (06) | DRG 683 ==
LOC: EME 16:27 → EDOF 19:43 → ENRESERV 19:45 → 5SOUTH 21:55
PROVIDERS: Emergency Medicine; Internal Medicine; Physician Assistant Medical
PROC: 5A09357 Assistance with Respiratory Ventilation, Less than 24 Consecutive Hours, Continuous Positive Airway Pressure (ICD-10-PCS; principal; 2017-01-25)
DX: N17.9 Acute kidney failure, unspecified (principal); J96.10 Chronic respiratory failure, unspecified whether with hypoxia or hypercapnia; E87.5 Hyperkalemia; E11.22 Type 2 diabetes mellitus with diabetic chronic kidney disease; N18.3 Chronic kidney disease, stage 3 (moderate); J44.9 Chronic obstructive pulmonary disease, unspecified; I27.2 Other secondary pulmonary hypertension; I13.0 Hypertensive heart and chronic kidney disease with heart failure and stage 1 through stage 4 chronic kidney disease, or unspecified chronic kidney disease; I48.2 Chronic atrial fibrillation; G47.33 Obstructive sleep apnea (adult) (pediatric); E87.1 Hypo-osmolality and hyponatremia; E86.0 Dehydration; I05.0 Rheumatic mitral stenosis; Z86.711 Personal history of pulmonary embolism; Z86.718 Personal history of other venous thrombosis and embolism; Z95.0 Presence of cardiac pacemaker; Z95.2 Presence of prosthetic heart valve; K21.9 Gastro-esophageal reflux disease without esophagitis; I25.10 Atherosclerotic heart disease of native coronary artery without angina pectoris; Z95.1 Presence of aortocoronary bypass graft; E55.9 Vitamin D deficiency, unspecified; D86.9 Sarcoidosis, unspecified; I50.9 Heart failure, unspecified; Z79.01 Long term (current) use of anticoagulants
CPT/HCPCS: 71010; 76770; 80047; 80048; 80048 91; 80053; 82164 90; 82436; 82575; 82948; 83735; 83930; 83935; 84100; 84133; 84300; 84484; 84999; 85027; 85610; 85651; 93005; 94640; 94760; 94799; 99281; 99285; J1815; J1940; J7030

== ENCOUNTER 2017-02-12 11:25 | Emergency (ER) | payer OTHER, MEDICARE ==
[~2017-02-12] VITALS: Ht 165.1 cm; Wt 59.5 kg
[~2017-02-12 11:25] MED LIST changes: +ALDACTONE25 MG PO; +AZITHROMYCIN500 M1 PO; +BREO ELLIPTA I1 EACH IH; +DULOXETINE HCL60 MG PO; +FUROSEMIDE40 MG PO; +OMEPRAZOLE40 M1 PO; +SPIRONOLACTONE25 MG PO; +VP-VITE RX TAB1 EACH PO
[2017-02-12 12:23] LABS: HEMATOCRIT 35.1 % (36.0-46.0); MCH 26.1 PG (29.0-34.0); MCHC 32.2 G/DL (30.0-36.0); MCV 81.1 FL (83-99); MEAN PLAT.VOLUME 8.4 uM^3 (9.5-12.4); PLATELET COUNT 232 K/uL (156-360); RBC DIS.WIDTH-CV 17.5 % (11.8-14.6); RED BLOOD COUNT 4.33 M/uL (3.80-5.20); WHITE BLOOD COUNT 7.1 K/uL (4.1-10.2)
[2017-02-12 12:27] LABS: INTER. NORMALIZED RATIO 2.7; PROTHROMBIN TIME 30.9 SEC (10.2-12.9)
[2017-02-12 12:30] LABS: PTT 40.1 SEC (25-37)
[2017-02-12 12:31] LABS: CHLORIDE 105 mEq/L (99-109); POTASSIUM 5.3 mEq/L (3.7-5.4); SODIUM 140 mEq/L (136-147)
[2017-02-12 12:33] LABS: GLUCOSE 66 mg/dL (70-99)
[2017-02-12 12:34] LABS: ANION GAP 9 MEQ/L (2-14)
[2017-02-12 12:37] LABS: GFR ESTIMATE (CALCULATED) 23 mL/min/
[2017-02-12 12:38] LABS: UREA NITROGEN (BUN) 37 mg/dL (9-23)
[2017-02-12 12:41] LABS: TROP-I INTERPRETATION NEGATIVE; TROPONIN-I 0.03 ng/mL (0.0-0.30)
[2017-02-12] MEDS ORDERED: LEVAQUIN500 MG PO (14:42)
[2017-02-12 16:51] VITALS: BP 110/53
== END 2017-02-12 16:54 | disposition home or self-care (01) ==
LOC: EME 11:25
PROVIDERS: Physician Assistant
DX: J44.0 Chronic obstructive pulmonary disease with (acute) lower respiratory infection (principal); J18.9 Pneumonia, unspecified organism; Z99.81 Dependence on supplemental oxygen; E11.9 Type 2 diabetes mellitus without complications; I10 Essential (primary) hypertension; R56.9 Unspecified convulsions; Z95.0 Presence of cardiac pacemaker; Z86.73 Personal history of transient ischemic attack (TIA), and cerebral infarction without residual deficits; Z95.1 Presence of aortocoronary bypass graft; Z79.4 Long term (current) use of insulin; Z79.01 Long term (current) use of anticoagulants; Z88.0 Allergy status to penicillin; Z88.8 Allergy status to other drugs, medicaments and biological substances; Z87.891 Personal history of nicotine dependence
CPT/HCPCS: 71020; 80048; 84484; 85027; 85610; 85730; 93005; 99281; 99285; J7030

== ENCOUNTER 2017-09-17 09:14 | Emergency (ER) | payer OTHER, MEDICARE ==
[~2017-09-17] VITALS: Ht 167.6 cm; Wt 61.4 kg
[~2017-09-17 09:14] MED LIST changes: +LEVAQUIN500 MG PO
[2017-09-17 09:54] LABS: HEMATOCRIT 32.3 % (36.0-46.0); HEMOGLOBIN 10.4 G/DL (11.9-15.5); MCH 26.7 PG (29.0-34.0); MCHC 32.2 G/DL (30.0-36.0); PLATELET COUNT 226 K/uL (156-360); RBC DIS.WIDTH-CV 14.3 % (11.8-14.6); RBC DIS.WIDTH-SD 43.2 % (39-53); RED BLOOD COUNT 3.89 M/uL (3.80-5.20); WHITE BLOOD COUNT 7.2 K/uL (4.1-10.2)
[2017-09-17 10:04] LABS: CHLORIDE 98 mEq/L (99-109); POTASSIUM 4.9 mEq/L (3.7-5.4); SODIUM 135 mEq/L (136-147)
[2017-09-17 10:06] LABS: GLUCOSE 196 mg/dL (70-99)
[2017-09-17 10:10] LABS: GFR ESTIMATE (CALCULATED) 26 mL/min/
[2017-09-17 10:11] LABS: UREA NITROGEN (BUN) 31 mg/dL (9-23)
[2017-09-17 10:14] LABS: TROP-I INTERPRETATION NEGATIVE; TROPONIN-I 0.04 ng/mL (0.0-0.30)
[2017-09-17] MEDS ORDERED: DUONEB 2.5-0.5 M3 ML AEROSOL (11:51)
[2017-09-17] MEDS ORDERED: PREDNISONE20 MG PO (11:52)
[2017-09-17 12:04] VITALS: BP 134/72
== END 2017-09-17 12:14 | disposition home or self-care (01) ==
LOC: EME 09:14
PROVIDERS: Emergency Medicine Emergency Medical Services
DX: J44.1 Chronic obstructive pulmonary disease with (acute) exacerbation (principal); J44.0 Chronic obstructive pulmonary disease with (acute) lower respiratory infection; J20.8 Acute bronchitis due to other specified organisms; I12.9 Hypertensive chronic kidney disease with stage 1 through stage 4 chronic kidney disease, or unspecified chronic kidney disease; N18.9 Chronic kidney disease, unspecified; E11.22 Type 2 diabetes mellitus with diabetic chronic kidney disease; Z79.4 Long term (current) use of insulin; R56.9 Unspecified convulsions; Z95.0 Presence of cardiac pacemaker; Z99.81 Dependence on supplemental oxygen; Z79.51 Long term (current) use of inhaled steroids; Z87.891 Personal history of nicotine dependence; Z87.01 Personal history of pneumonia (recurrent); Z95.1 Presence of aortocoronary bypass graft; Z79.01 Long term (current) use of anticoagulants; Z86.73 Personal history of transient ischemic attack (TIA), and cerebral infarction without residual deficits; Z88.1 Allergy status to other antibiotic agents; Z88.0 Allergy status to penicillin; Z91.041 Radiographic dye allergy status
CPT/HCPCS: 71045; 80048; 83880; 84484; 85027; 93005; 94644; 99281; 99285; J7512